=== PATIENT | female | born 1935 | race Caucasian/White ===

== ENCOUNTER 2019-04-19 07:15 | Day surgery (SDC) | payer MEDICARE, OTHER, SELFPAY ==
--- NOTE | 2019-04-19 07:24 | HP.PCM_ITS ---
Problem List (1) Vaginal mass Status: Acute (2) Vaginal dryness, menopausal Status: Acute History of Present Illness Date of Admission: 04/19/19 Chief Complaint: 1 cm posterior apical vaginal mass and a 5 mm left lateral wall vaginal mass The patient is a 83 year old F being managed for pelvic organ prolapse with pessary and vaginal estrogen replacement. At her last pessary check, a lesion 1cm at posterior apex and 5mm left lateral wall vaginal lesions were identified. The vaginal estrogen was stopped, the pessary was left out. The decision was made to remove these areas with excisional biopsy under anesthesia. Informed consent was obtained. Past Medical History Allergies acetaminophen [From Vicodin] Allergy (Verified 04/15/19 10:07) Hives adhesive Allergy (Verified 04/15/19 10:07) Itching REDNESS epinephrine Allergy (Verified 04/15/19 10:07) Other FACE FLUSHED hydrocodone bitartrate [From Vicodin] Allergy (Verified 04/15/19 10:07) Hives hydromorphone [From Dilaudid] Adverse Reaction (Verified 04/15/19 10:07) HALLUCINATIONS,CONFUSION Home Medications: Ambulatory Orders Medication Instructions Recorded Calcium Carbonate/Vitamin D3 2 each PO BID 03/15/15 [Calcium 600 + Vit D3 Caplet] Hydrochlorothiazide 12.5 mg PO DAILY 03/15/15 L.acidoph,Paracasei, B.lactis 1 each PO DAILY 03/15/15 [Probiotic] Levothyroxine Sodium [Levoxyl] 25 mcg PO DAILY 03/15/15 Losartan Potassium [Cozaar] 100 mg PO QHS 03/15/15 Multivitamins,Therapeutic 1 tablet PO DAILY 03/15/15 [Multivitamin] Rosuvastatin Calcium [Crestor] 10 mg PO QHS 03/15/15 Vitamin E 400 unit PO MOWEFR 03/15/15 Amlodipine [Norvasc] 5 mg PO DAILY 04/15/19 Aspirin [Aspir 81] 81 mg PO DAILY 04/15/19 Escitalopram Oxalate [Lexapro] 5 mg PO DAILY 04/15/19 Lorazepam [Ativan] 0.5 mg PO DAILY PRN PRN 04/15/19 Melatonin/Pyridoxine HCl (B6) 1 ea PO QHS 04/15/19 [Melatonin 3 mg Tablet] Mirtazapine [Remeron] 7.5 mg PO QHS 04/15/19 [place]-3 Fatty Acids/Fish Oil [Fish 1 ea PO DAILY 04/15/19 Oil 1,000 mg Capsule] Surgical History: hysterectomy [employer] History: - - pelvic organ prolapse being managed with pessary Lives: Alone, - - spouse is in senior care Smoking Status: Never smoker Tobacco Use: Non-smoker Review of Systems Constitutional: Denies: Anorexia, Chills, Fever, Malaise, Weakness, Weight Change, Fatigue Eyes: Denies: Vision Change HEENT: Denies: Head Aches, Visual Changes Cardiovascular: Denies: Chest Pain, Chest Pressure Respiratory: Denies: Cough, Shortness of Breath Gastrointestinal: Denies: Abdominal Pain, Diarrhea, Nausea, Vomiting Genitourinary: Denies: Dysuria, Frequency Gynecological: Denies: Vaginal bleeding, Vaginal discharge, Vaginal itching Musculoskeletal: Denies: Muscle pain Skin: Denies: Rash, Wounds Neurological: Denies: Confusion Psychiatric: Reports: Anxiety VTE Information - Inpt Only VTE Present on Admission: Yes VTE Mechan Device Prophylaxis: SCD's VTE Pharm Prophylaxis ordered?: No Reason prophylaxis not ordered:: Treatment Not Indicated Patient Problems: Active and Suspected Problems Vaginal mass (Acute) Vaginal dryness, menopausal (Acute) - Physical Exam General: Alert, Oriented x3, Cooperative HEENT: Atraumatic, Normocephalic Oral: Moist Mucosa Neck: Supple, Trachea Midline Lungs: Normal air movement Cardiovascular: Regular rate, Regular Rhythm Abdomen: Soft, Non Tender, Non-Distended Extremities: No Calf Tenderness Skin: No rashes Musculoskeletal: No Tenderness to Palpation of Joints or Extremities Neurological: Cranial nerves II-XII grossly intact Psych/Mental Status: Anxious Assessment/Plan All Active Problems Vaginal mass (Acute) Vaginal dryness, menopausal (Acute) Proceed with excision vaginal mass under anesthesia. Informed consent was obtained. She understands and agress to proceed.
[2019-04-19 07:42] VITALS: BP 135/63; PULSE 76; RESP 14; TEMP 36.1; O2SAT 95; BMI 23.8
[2019-04-19] MEDS: Cefazolin 2 GM in 0.9% Normal Saline 100 ML IV (08:36)
--- NOTE | 2019-04-19 08:50 | MASS_PTH ---
PATIENT: ZACHERY YATES LOC: [facility] [place] U#:[id number] AGE/SX: 83/F ROOM: RE04/19/[address]: Dr. Sujatha Alaniz MD : [id number] BED: DIS: 04/19/2019 SPEC #: [id number] RECD: 04/19/19 09:26 STATUS: CORINA ALAN #: [id number] AVINASH: 04/19/19 08:[address]: Sujatha Alaniz DEPT: SURGICAL PATHOLOGY RECD BY: Mau Hansen ENTERED: 04/19/19 11:21 SP TYPE: Mass OTHR DR: Dr. Rosalina To, DO Tissues: Vagina, NOS Procedures: Surgery Specimen Level IV HEADER OPERATION: Excision vaginal mucosal lesions x2 PRE-OP DIAGNOSIS: 1 cm apical vaginal mass and 5 mm left lateral wall vaginal mass TISSUE SUBMITTED: Vaginal mass x2 MICROSCOPIC DIAGNOSIS Vaginal mass x2, excision: Fragments of squamous mucosa with acute and chronic inflammation and granulation tissue reaction. Negative for malignancy. EDEL:mary kay 04/20/19 COMMENT Clinical correlation and appropriate follow up are necessary. MICROSCOPIC DESCRIPTION Slides are reviewed. GROSS DESCRIPTION Received in fixative is one container labeled with the patient's name and designated vaginal mass. The specimen consists of three irregular fragments of reddish-kelly soft tissue that in aggregate measure 1.5 x 0.7 x 0.2 cm. The specimen is totally submitted in one cassette. / AM:mary kay 04/19/19 TC:5 CPT:
--- NOTE | 2019-04-19 09:05 | PCM.OPRPT ---
Problem List (1) Vaginal mass Status: Acute (2) Vaginal dryness, menopausal Status: Acute Report of Operation Date of Procedure: 04/19/19 Pre-Operative Diagnosis: vaginal mucosal mass x 2 Post-Operative Diagnosis: same Surgery/Procedure Performed:: excisional biopsy vaginal wall mass x 2. Description of Surgical Findings:: 1 cm posterior apical lesion consistent with inflammatory polyp macroscopically. 5 mm left lateral wall lesion indeterminate. Both removed without difficulty and mucosa closed with 2-0 Vicryl. Type of Anesthesia:: Local MAC Specimen's removed: vaginal mucosal mass x 2, one consistent with inflammatory polyp Estimated Blood Loss (mL): 5cc Description of Procedure: Patient is an 83-year-old female being treated with a pessary for pelvic organ prolapse. She came into the office for routine pelvic exam and 2 areas of abnormality were identified. 1 approximately 1 cm in diameter in the posterior apical vaginal wall. The other lesion approximately 5 mm in size in the left lateral vaginal wall. After discussing the risks of these lesions increasing in size, informed consent was obtained for excisional biopsy under anesthesia. Patient was taken to the operating room and placed on the operating room table. Anesthesia monitored the head, neck, airway, IV access and vital signs throughout the case. Once anesthesia was appropriately administered the patient was placed into dorsal lithotomy in Trendelenburg position and was prepped and draped in usual sterile fashion. Each lesion was identified is seen in the office. Starting with the posterior larger lesion, they were injected submucosally with 1% lidocaine with epinephrine in a 1:100,000 ratio. Using a knife in an elliptical fashion the mucosa including the lesions were removed. The mucosa was then brought together in running interlocking fashion with 2-0 Vicryl. Hemostasis was obtained in this fashion for both lesions. The patient was then awakened and taken to the recovery room in good condition. There were no complications during this procedure. Grafts/Implants Used: none - Complications none - Admit VTE Documentation VTE Present on Admission: Yes VTE Mechan Device Prophylaxis: SCD's VTE Pharm Prophylaxis ordered?: No Reason prophylaxis not ordered:: Treatment Not Indicated
[2019-04-19 09:09] VITALS: BP 135/63; BP 142/69; PULSE 81; RESP 16; TEMP 36.5; O2SAT 96
[2019-04-19 09:14] VITALS: BP 135/63; BP 146/66; PULSE 80; RESP 16; O2SAT 96
[2019-04-19 09:19] VITALS: BP 135/63; BP 150/68; PULSE 76; RESP 16; O2SAT 95
--- NOTE | 2019-04-19 09:20 | PCM.DC.URO ---
Discharge Diet: No Restrictions Discharge Activity: May not drive while taking narcotic pain medications., May Shower Additional Activity Instructions:: nothing per vagina until advised by physician Call your doctor if your incision/area has: Continuous Slow Oozing, Sudden Increased Bleeding, Increased Pain/ Swelling Call your doctor if you observe: Fever of 101 or Higher, Inability to urinate, Inability to have a bowel movement, Using more than one pad per hour, Shortness of breath, Chest pain, Calf discomfort, Uncontrolled pain Allergies/Adverse Reactions: Allergies adhesive Allergy (Verified 04/15/19 10:07) Itching REDNESS epinephrine Allergy (Verified 04/15/19 10:07) Other FACE FLUSHED hydrocodone bitartrate [From Vicodin] Allergy (Verified 04/15/19 10:07) Hives hydromorphone [From Dilaudid] Adverse Reaction (Verified 04/15/19 10:07) HALLUCINATIONS,CONFUSION Medications to take at Discharge Calcium Carbonate/Vitamin D3 [Calcium 600-Vit D3 800 Caplet] 2 each PO BID 03/15/15 Hydrochlorothiazide 12.5 mg PO DAILY 03/15/15 L.acidoph,Paracasei, B.lactis [Probiotic] 1 each PO DAILY 03/15/15 Levothyroxine Sodium [Levoxyl] 25 mcg PO DAILY 03/15/15 Losartan Potassium [Cozaar] 100 mg PO QHS 03/15/15 Multivitamins,Therapeutic [Multivitamin] 1 tablet PO DAILY 03/15/15 Rosuvastatin Calcium [Crestor] 10 mg PO QHS 03/15/15 Vitamin E 400 unit PO MOWEFR 03/15/15 Amlodipine [Norvasc] 5 mg PO DAILY 04/15/19 Aspirin [Aspir 81] 81 mg PO DAILY 04/15/19 Escitalopram Oxalate [Lexapro] 5 mg PO DAILY 04/15/19 Lorazepam [Ativan] 0.5 mg PO DAILY PRN PRN 04/15/19 Melatonin/Pyridoxine HCl (B6) [Melatonin 3 mg Tablet] 1 ea PO QHS 04/15/19 Mirtazapine [Remeron] 7.5 mg PO QHS 04/15/19 [place]-3 Fatty Acids/Fish Oil [Fish Oil 1,000 mg Capsule] 1 ea PO DAILY 04/15/19 Acetaminophen/Codeine #3 [Tylenol#3] 1 tab PO Q6H PRN PRN 4 Days #10 tab 04/19/19 Cephalexin [Keflex] 500 mg PO Q12 3 Days #6 cap 04/19/19 The following prescriptions were given: Cephalexin [Keflex] 500 mg PO Q12 3 Days #6 cap Prescription Printed Acetaminophen/Codeine #3 [Tylenol#3] 1 tab PO Q6H PRN PRN 4 Days #10 tab PRN Reason: Pain Prescription Printed Primary Care Physician: Rosalina To [Primary Care Provider] - Test Results: Test results from this visit will be discussed in further detail at your follow-up appointment, if applicable. Please Follow Up With: Sujatha Alaniz MD When: call for appt to be seen next week
[2019-04-19 09:24] VITALS: BP 135/63; BP 148/66; PULSE 75; RESP 16; TEMP 36.4; O2SAT 96
[2019-04-19 10:36] VITALS: BP 135/63
== END 2019-04-19 10:42 | disposition home or self-care (01) ==
LOC: SDC 07:17 → AC 07:21
PROVIDERS: Family Provider Family Medicine; PCP Family Medicine; Referring Provider Urology; Visit Provider Urology
PROC: (CPT 57105; principal; 2019-04-19 08:40)
DX: N89.8 Other specified noninflammatory disorders of vagina (principal); N95.1 Menopausal and female climacteric states; E07.9 Disorder of thyroid, unspecified; Z79.899 Other long term (current) drug therapy; Z79.82 Long term (current) use of aspirin; E78.00 Pure hypercholesterolemia, unspecified; I10 Essential (primary) hypertension
CPT/HCPCS: 57105; 88305; J7120